=== PATIENT | male | born 1990 | race American Indian/Alaskan Native ===

== ENCOUNTER 2017-10-11 08:51 | Emergency (ER) | payer MEDICAID ==
[2017-10-11] MEDS ORDERED: cefTRIAXone (Rocephin) 250 mg Inj IM STA (09:15)
[2017-10-11 10:23] VITALS: BP 118/76; PULSE 87; RESP 16; TEMP 97.6; O2SAT 100
--- NOTE | 2017-10-11 11:49 | C.PDOC ---
History Of Present Illness 27 y/o male with history of HIV, CD4 count of 480 "months ago" presents to ED with c/o conjunctivitis to bilateral eyes for 3 days. Patient requests STD prophylaxis, states he has protected sex 100% of the time and denies vision changes, penile discharge, penile rash or any other complaints at this time. Time Seen by Provider: 10/11/17 09:05 Chief Complaint (Nursing): Eye Problem History Per: Patient History/Exam Limitations: no limitations Onset/Duration Of Symptoms: Days Current Symptoms Are (Timing): Still Present Past Medical History Reviewed: Historical Data, Nursing Documentation, Vital Signs Vital Signs: Last Vital Signs Temp 97.6 F 10/11/17 10:21 Pulse 87 10/11/17 10:21 Resp 16 10/11/17 10:21 BP 118/76 10/11/17 10:21 Pulse Ox 100 10/11/17 11:50 - Medical History PMH: Bipolar Disorder, HIV, Schizophrenia Surgical History: No Surg Hx Family History: States: No Known Family Hx - Social History Hx Alcohol Use: Yes Hx Substance Use: No - Immunization History Hx Tetanus Toxoid Vaccination: No Hx Influenza Vaccination: No Hx Pneumococcal Vaccination: No Review Of Systems Constitutional: Negative for: Fever, Chills Eyes: Positive for: Pain, Redness. Negative for: Vision Change ENT: Negative for: Throat Pain Respiratory: Negative for: Cough Skin: Negative for: Rash Physical Exam - Physical Exam Appears: Non-toxic, No Acute Distress Skin: Warm, Dry, No Rash Head: Atraumatic, Normacephalic Eye(s): bilateral: PERRL, EOMI, Other (Conjunctival injection with discharge noted on left eye) Ear(s): Bilateral: Normal Oral Mucosa: Moist Throat: Normal, No Erythema, No Exudate Cardiovascular: Rhythm Regular Respiratory: Normal Breath Sounds, No Rales, No Rhonchi, No Wheezing Neurological/Psych: Oriented x3, Normal Speech ED Course And Treatment O2 Sat by Pulse Oximetry: 100 (RA) Pulse Ox Interpretation: Normal Disposition - Disposition Referrals: Shira Jackson, [Non-Staff] - Disposition: HOME/ ROUTINE Disposition Time: 09:20 Condition: GOOD Additional Instructions: ELVIN NAVA, thank you for letting us take care of you today. The emergency medical care you received today was directed at your acute symptoms. If you were prescribed any medication, please fill it and take as directed. It may take several days for your symptoms to resolve. Return to the Emergency Department if your symptoms worsen, do not improve, or if you have any other problems. Please contact your doctor or call one of the physicians/clinics you have been referred to that are listed on the Patient Visit Information form that is included in your discharge packet. Bring any paperwork you were given at discharge with you along with any medications you are taking to your follow up visit. Our treatment cannot replace ongoing medical care by a primary care provider outside of the emergency department. Thank you for allowing the [facility] team to be part of your care today. You had an STI test: It will take 48 hours for the results. Please call after 1 week if you have not heard back. Follow up with your primary care doctor in 2-3 days for re-evaluation and further management. Prescriptions: Polymyxin/Trimethoprim Sulfate [Polytrim Ophth Soln] 2 drop OU Q4 #1 bottle Instructions: Conjunctivitis ([place]) (DC), Sexually-Transmitted Diseases (DC) Forms: [employer] ([place]) - Clinical Impression Clinical Impression: Conjunctivitis, Encounter for assessment of STD exposure - Scribe Statement The provider has reviewed the documentation as recorded by the Scribfrantz Torres All medical record entries made by the Reneaibfrantz were at my direction and personally dictated by me. I have reviewed the chart and agree that the record accurately reflects my personal performance of the history, physical exam, medical decision making, and the department course for this patient. I have also personally directed, reviewed, and agree with the discharge instructions and disposition.
== END 2017-10-11 10:23 | disposition home or self-care (01) ==
LOC: C.ER 08:51
DX: H10.9 Unspecified conjunctivitis (principal); Z20.2 Contact with and (suspected) exposure to infections with a predominantly sexual mode of transmission
CPT/HCPCS: 87491; 87591; 96372; 99285; J0696